=== PATIENT | female | born 1985 | race American Indian/Alaskan Native ===

== ENCOUNTER 2018-03-05 13:45 | Emergency (ER) | payer OTHER ==
[2018-03-05] MEDS ORDERED: ZOFRAN IV ONE (15:06)
[2018-03-05] MEDS ORDERED: MORPHINE IV ONE (15:14)
[2018-03-05] MEDS ORDERED: PEPCID IV ONE (15:14)
[2018-03-05] MEDS ORDERED: NACL 0.9% 1000 ML 1,000 ML IV ONE (15:14)
[2018-03-05 15:33] LABS: Basophils # (Auto) 0.1 K/mm3 (0.0-0.1); Basophils % (Auto) 0.7 % (0.0-1.8); Eosinophils # (Auto) 0.7 K/mm3 (0.0-0.4); Eosinophils % (Auto) 4.3 % (0.0-4.3); Hematocrit 42.5 % (30.3-42.9); Hemoglobin 13.7 gm/dl (10.1-14.3); Lymphocytes # (Auto) 0.9 K/mm3 (1.2-5.4); Lymphocytes % (Auto) 5.5 % (13.4-35.0); Mean Corpuscular HGB Conc 32 % (30-34); Mean Corpuscular Volume 73 fl (79-97); Monocytes # (Auto) 0.5 K/mm3 (0.0-0.8); Monocytes % (Auto) 3.1 % (0.0-7.3); Platelet Count 544 K/mm3 (140-440); Red Cell Distribution Width 15.1 % (13.2-15.2)
[2018-03-05 15:37] LABS: Mean Corpuscular Hemoglobin 24 pg (28-32)
[2018-03-05 15:40] LABS: Albumin 4.5 g/dL (3.9-5); BUN/Creatinine Ratio 13; Blood Urea Nitrogen 10 mg/dL (7-17); Calcium 9.8 mg/dL (8.4-10.2); Hemolysis Index 120; Lipase 19 units/L (13-60)
[2018-03-05 15:52] LABS: Alanine Aminotransferase 14 units/L (7-56)
[2018-03-05] MEDS ORDERED: DILAUDID IV ONE (15:54)
[2018-03-05 16:07] LABS: Bilirubin,Urine NEG (Negative); Blood,Urine LG (Negative); Color,Urine Yellow (Yellow); Mucus,Urine 1+ /HPF; Protein,Urine <15 mg/dL mg/dL (Negative); Urobilinogen,Urine < 2.0 mg/dL (<2.0)
[2018-03-05 16:11] LABS: HCG Qualitative,Urine Negative (Negative)
--- NOTE | 2018-03-05 16:56 | Emergency Department Report ---
ED Abdominal Pain HPI - General Chief Complaint: Abdominal Pain Stated Complaint: ABDOMINAL PAIN Source: patient Mode of arrival: Ambulatory Limitations: No Limitations - History of Present Illness Initial Comments: 32-year-old female with no past medical history of previous surgical history for ovarian cysts presents complaining of 10/10 upper abdominal pain, nausea, and vomiting. She reports some mild blood streaked vomitus that has resolved and is now green in color. She denies fever, diarrhea, melena, hematochezia, or alcohol use. Pain is constant, sharp and aching, and worse with palpation. No alleviating factors reported. Pt on menstral cycle now Severity scale (0 -10): 10 - Related Data Previous Rx's Medication Instructions Recorded Last Taken Type methOCARBAMOL [Robaxin] 500 mg PO BID #14 tab 12/07/13 Unknown Rx traMADol [Ultram] 50 mg PO Q4HR PRN #14 tablet 12/07/13 Unknown Rx Famotidine [Pepcid] 20 mg PO BID #30 tablet 03/05/18 Unknown Rx HYDROcodone/APAP 5-325 [[place] 1 each PO Q4-6H PRN #20 tablet 03/05/18 Unknown Rx 5/325] Ibuprofen [Motrin] 800 mg PO Q8HR PRN #30 tablet 03/05/18 Unknown Rx Ondansetron [Zofran Odt] 4 mg PO Q8HR PRN #20 tab.rapdis 03/05/18 Unknown Rx Allergies Allergy/AdvReac Type Severity Reaction Status Date / Time No Known Allergies Allergy Verified 12/06/13 21:07 ED Review of Systems ROS: Stated complaint: ABDOMINAL PAIN Other details as noted in HPI Comment: All other systems reviewed and negative ED Past Medical Hx - Past Medical History Previous Medical History?: No - Surgical History Additional Surgical History: ovarian cyst - Social History Smoking Status: Current Every Day Smoker Substance Use Type: None - Medications Home Medications: Home Medications Medication Instructions Recorded Confirmed Last Taken Type methOCARBAMOL [Robaxin] 500 mg PO BID #14 tab 12/07/13 Unknown Rx traMADol [Ultram] 50 mg PO Q4HR PRN #14 tablet 12/07/13 Unknown Rx Famotidine [Pepcid] 20 mg PO BID #30 tablet 03/05/18 Unknown Rx HYDROcodone/APAP 5-325 [[place] 1 each PO Q4-6H PRN #20 tablet 03/05/18 Unknown Rx 5/325] Ibuprofen [Motrin] 800 mg PO Q8HR PRN #30 tablet 03/05/18 Unknown Rx Ondansetron [Zofran Odt] 4 mg PO Q8HR PRN #20 tab.rapdis 03/05/18 Unknown Rx ED Physical Exam - General Limitations: No Limitations - Other Other exam information: General: Positive distress secondary to pain Head exam: Atraumatic, normocephalic Eyes exam: Normal appearance, nonicteric sclera ENT: Moist mucous membrane, normal oropharynx Neck exam: Normal inspection, full range of motion, no meningismus nontender Respiratory exam: Clear to auscultation bilateral, no wheezes, rales, crackles Cardiovascular: Normal rate and rhythm, normal heart sounds Abdomen: Soft, nondistended, epigastric, right upper quadrant, and left upper quadrant tenderness, no rebound or guarding Extremity: Full range of motion normal inspection no deformity Back: Normal Inspection, full range of motion, no tenderness Neurologic: Alert, oriented x3, cranial nerves intact, no motor or sensory deficit Skin: Warm, dry, intact ED Course Vital Signs 03/05/18 03/05/18 03/05/18 13:54 15:14 15:40 Temperature 98.2 F Pulse Rate 83 Respiratory 19 Rate Blood Pressure 112/50 109/52 Blood Pressure [Right] O2 Sat by Pulse 96 100 Oximetry 03/05/18 03/05/18 15:46 18:36 Temperature Pulse Rate 88 Respiratory 18 Rate Blood Pressure 115/61 Blood Pressure 126/78 [Right] O2 Sat by Pulse 100 99 Oximetry - Reevaluation(s) Reevaluation #1: 03/05/18 16:52 Treated with Dilaudid, Zofran, NS, Pepcid. - Consultations Consultation #1: 03/05/18 18:30 Case d/w Dr Mitchell (surgeon), d/c with symptomatic treatment appropriate. Recommend call office tomorrow to schedule appointment for follow-up. ED Medical Decision Making - Lab Data Result diagrams: 03/05/18 15:14 03/05/18 15:14 Lab Results 03/05/18 03/05/18 03/05/18 Range/Units 15:14 15:14 15:14 WBC 16.7 H (4.5-11.0) K/mm3 RBC 5.80 H (3.65-5.03) M/mm3 Hgb 13.7 (10.1-14.3) gm/dl Hct 42.5 (30.3-42.9) % MCV 73 L (79-97) fl MCH 24 L (28-32) pg MCHC 32 (30-34) % RDW 15.1 (13.2-15.2) % Plt Count 544 H (140-440) K/mm3 Lymph % (Auto) 5.5 L (13.4-35.0) % [place] % (Auto) 3.1 (0.0-7.3) % Eos % (Auto) 4.3 (0.0-4.3) % Baso % (Auto) 0.7 (0.0-1.8) % Lymph # 0.9 L (1.2-5.4) K/mm3 [place] # 0.5 (0.0-0.8) K/mm3 Eos # 0.7 H (0.0-0.4) K/mm3 Baso # 0.1 (0.0-0.1) K/mm3 Seg Neutrophils % 86.4 H (40.0-70.0) % Seg Neutrophils # 14.4 H (1.8-7.7) K/mm3 Sodium 135 L (137-145) mmol/L Potassium 4.6 (3.6-5.0) mmol/L Chloride 96.6 L (98-107) mmol/L Carbon Dioxide 25 (22-30) mmol/L Anion Gap 18 mmol/L BUN 10 (7-17) mg/dL Creatinine 0.8 (0.7-1.2) mg/dL Estimated GFR > 60 ml/min BUN/Creatinine Ratio 13 % Glucose 100 (65-100) mg/dL Calcium 9.8 (8.4-10.2) mg/dL Total Bilirubin 0.60 (0.1-1.2) mg/dL AST 26 (5-40) units/L ALT 14 (7-56) units/L Alkaline Phosphatase 91 (35-129) units/L Total Protein 9.1 H (6.3-8.2) g/dL Albumin 4.5 (3.9-5) g/dL Albumin/Globulin Ratio 1.0 % Lipase 19 (13-60) units/L HCG, Quant < 2 (0-4) mIU/mL Urine Color (Yellow) Urine Turbidity (Clear) Urine pH (5.0-7.0) Ur Specific [place] (1.003-1.030) Urine Protein (Negative) mg/dL Urine Glucose (UA) (Negative) mg/dL Urine Ketones (Negative) mg/dL Urine Blood (Negative) Urine Nitrite (Negative) Urine Bilirubin (Negative) Urine Urobilinogen (<2.0) mg/dL Ur Leukocyte Esterase (Negative) Urine WBC (Auto) (0.0-6.0) /HPF Urine RBC (Auto) (0.0-6.0) /HPF U Epithel Cells (Auto) (0-13.0) /HPF Urine Mucus /HPF Urine HCG, Qual (Negative) 03/05/18 Range/Units 15:29 WBC (4.5-11.0) K/mm3 RBC (3.65-5.03) M/mm3 Hgb (10.1-14.3) gm/dl Hct (30.3-42.9) % MCV (79-97) fl MCH (28-32) pg MCHC (30-34) % RDW (13.2-15.2) % Plt Count (140-440) K/mm3 Lymph % (Auto) (13.4-35.0) % [place] % (Auto) (0.0-7.3) % Eos % (Auto) (0.0-4.3) % Baso % (Auto) (0.0-1.8) % Lymph # (1.2-5.4) K/mm3 [place] # (0.0-0.8) K/mm3 Eos # (0.0-0.4) K/mm3 Baso # (0.0-0.1) K/mm3 Seg Neutrophils % (40.0-70.0) % Seg Neutrophils # (1.8-7.7) K/mm3 Sodium (137-145) mmol/L Potassium (3.6-5.0) mmol/L Chloride (98-107) mmol/L Carbon Dioxide (22-30) mmol/L Anion Gap mmol/L BUN (7-17) mg/dL Creatinine (0.7-1.2) mg/dL Estimated GFR ml/min BUN/Creatinine Ratio % Glucose (65-100) mg/dL Calcium (8.4-10.2) mg/dL Total Bilirubin (0.1-1.2) mg/dL AST (5-40) units/L ALT (7-56) units/L Alkaline Phosphatase (35-129) units/L Total Protein (6.3-8.2) g/dL Albumin (3.9-5) g/dL Albumin/Globulin Ratio % Lipase (13-60) units/L HCG, Quant (0-4) mIU/mL Urine Color Yellow (Yellow) Urine Turbidity Clear (Clear) Urine pH 5.0 (5.0-7.0) Ur Specific [place] 1.021 (1.003-1.030) Urine Protein <15 mg/dl (Negative) mg/dL Urine Glucose (UA) Neg (Negative) mg/dL Urine Ketones Neg (Negative) mg/dL Urine Blood Lg (Negative) Urine Nitrite Neg (Negative) Urine Bilirubin Neg (Negative) Urine Urobilinogen < 2.0 (<2.0) mg/dL Ur Leukocyte Esterase Neg (Negative) Urine WBC (Auto) 5.0 (0.0-6.0) /HPF Urine RBC (Auto) 15.0 (0.0-6.0) /HPF U Epithel Cells (Auto) 2.0 (0-13.0) /HPF Urine Mucus 1+ /HPF Urine HCG, Qual Negative (Negative) - Radiology Data Radiology results: report reviewed CT abdomen and pelvis IV contrast; cholelithiasis without evidence of acute cholecystitis. Incidental 6 mm cyst in the left kidney - Medical Decision Making Cholelithiasis Likely the cause of abdominal symptoms/biliary colic Although elevated WBC count patient does not have a fever, signs of cholecystitis or imaging study, and has normal LFTs and lipase Case discussed with surgery Patient be discharged home with symptomatic treatment encouraged to call surgery tomorrow to schedule follow-up - Differential Diagnosis pancreatitis, biliary colic, cholecystitis, UTI, renal colic, PUD Critical Care Time: No Critical care attestation.: If time is entered above; I have spent that time in minutes in the direct care of this critically ill patient, excluding procedure time. ED Disposition Clinical Impression: Biliary colic Cholelithiasis Qualifiers: Cholelithiasis location: gallbladder Cholecystitis presence: without cholecystitis Biliary obstruction: without biliary obstruction Qualified Code(s) : K80.20 - Calculus of gallbladder without cholecystitis without obstruction Disposition: TO HOME OR SELFCARE Is pt being admited?: No Does the pt Need Aspirin: No Condition: Stable Instructions: Biliary Colic (ED) Additional Instructions: Take the medication as prescribed. Call the surgeon office tomorrow to schedule outpatient follow-up and possible surgery to remove your gallbladder. Please return if symptoms worsen as indicated by your discharge instructions. You have been provided a copy of the CAT scan report to take to your doctors for follow-up Prescriptions: Famotidine [Pepcid] 20 mg PO BID #30 tablet HYDROcodone/APAP 5-325 [[place] 5/325] 1 each PO Q4-6H PRN #20 tablet PRN Reason: Pain Ibuprofen [Motrin] 800 mg PO Q8HR PRN #30 tablet PRN Reason: Pain Ondansetron [Zofran Odt] 4 mg PO Q8HR PRN #20 tab.rapdis PRN Reason: Nausea And Vomiting Referrals: PRIMARY CARE, [Primary Care Provider] - 3-5 Days CRISTINA BRUNER MD [Staff Physician] - 3-5 Days (Primary care doctor) GIRISH MITCHELL MD [Staff Physician] - 3-5 Days (General Surgeon) Forms: Work/School Release Form(ED) Time of Disposition: 18:40
--- NOTE | 2018-03-05 18:10 | Cat Scan Report ---
FINAL REPORT EXAM: CT ABDOMEN PELVIS W CON HISTORY: upper abd pain, vomiting TECHNIQUE: Dynamic helical CT scan through the abdomen and pelvis during and again after intravenous injection of iodinated contrast. Images are reconstructed in the sagittal and coronal planes. Oral contrast was not given. PRIORS: None. FINDINGS: The lung bases are clear. There are multiple stones in an otherwise normal-appearing gallbladder. The liver, pancreas, spleen and adrenal glands appear normal. There is a 6 mm cyst in the left kidney. Otherwise, the kidneys appear normal. There is a 3.4 x 2.7 x 3.0 Cm mostly fatty lesion in the left ovary consistent with a dermoid. The right you the right ovary and uterus are unremarkable. The stomach appears grossly within normal limits. There are no abnormally dilated loops of bowel or acute inflammatory changes. A normal-appearing appendix is identified. The abdominal aorta has a normal diameter. The bones and subcutaneous soft tissues are unremarkable for age. IMPRESSION: 1. Cholelithiasis without CT evidence of acute cholecystitis 2. Incidental 6 mm cyst in the left kidney 3. Incidental 3.4 x 2.7 x 3.0 cm mostly fatty lesion in the left ovary consistent with a dermoid.
[2018-03-05 18:37] VITALS: BP 126/78
== END 2018-03-05 18:58 | disposition home or self-care (01) ==
LOC: ED 13:45
DX: K80.20 Calculus of gallbladder without cholecystitis without obstruction (principal); K80.50 Calculus of bile duct without cholangitis or cholecystitis without obstruction; F17.200 Nicotine dependence, unspecified, uncomplicated
CPT/HCPCS: 36415; 74177; 80053; 81001; 81025; 83690; 84702; 85025; 96361; 96374; 96375; 99284; J1170; J2405; J7030; Q9967

== ENCOUNTER 2019-10-05 12:40 | Outpatient (CLI) | payer OTHER, MEDICAID ==
[2019-10-05 13:27] VITALS: BP 99/48
[2019-10-05 14:43] LABS: Bacteria,Urine 1+ /HPF (Negative); Bilirubin,Urine NEG (Negative); Blood,Urine NEG (Negative); Color,Urine Yellow (Yellow); Mucus,Urine FEW /HPF; Protein,Urine <15 mg/dL mg/dL (Negative); RBC,Urine < 1.0 /HPF (0.0-6.0); Urobilinogen,Urine < 2.0 mg/dL (<2.0)
== END 2019-10-05 16:17 | disposition home or self-care (01) ==
LOC: TRG 12:40
PROVIDERS: ATTEND Obstetrics & Gynecology
DX: O47.02 False labor before 37 completed weeks of gestation, second trimester (principal); Z3A.24 24 weeks gestation of pregnancy
CPT/HCPCS: 81001

== ENCOUNTER 2019-12-03 11:56 | Outpatient (CLI) | payer MEDICAID ==
[2019-12-03] MEDS ORDERED: LACTATED RINGERS 1,000 ML IV ONE (12:24)
[2019-12-03 13:24] LABS: Bilirubin,Urine NEG (Negative); Blood,Urine NEG (Negative); Color,Urine Yellow (Yellow); Mucus,Urine FEW /HPF; Protein,Urine <15 mg/dL mg/dL (Negative); Urobilinogen,Urine < 2.0 mg/dL (<2.0)
[2019-12-03] MEDS ORDERED: ACETAMINOPHEN 500 MG TAB PO ONE (13:48)
[2019-12-03 15:13] VITALS: BP 102/55
== END 2019-12-03 15:35 | disposition home or self-care (01) ==
LOC: TRG 11:56
PROVIDERS: ATTEND Obstetrics & Gynecology
DX: O26.893 Other specified pregnancy related conditions, third trimester (principal); R10.30 Lower abdominal pain, unspecified; Z3A.33 33 weeks gestation of pregnancy; Z87.891 Personal history of nicotine dependence
CPT/HCPCS: 81001; 96360; J7120